=== PATIENT | male | born 1985 | race American Indian/Alaskan Native ===

== ENCOUNTER 2017-09-15 20:04 | Inpatient (IN) | payer OTHER ==
[2017-09-15 20:48] VITALS: BMI 43.6
[2017-09-15] MEDS ORDERED: Sodium Chloride 0.9% 1,000 ML IV STA ×4 (21:14→22:43)
--- NOTE | 2017-09-15 21:19 | ED PDOC ---
Arrival/HPI - General Chief Complaint: Dizziness/Lightheaded Time Seen by Provider: 09/15/17 21:13 Historian: Patient - History of Present Illness Narrative History of Present Illness (Text): 09/15/17 21:15 32 y/o male, pmh including htn/hyperlipidemia/DM???, nkda, c/o fatigue/ dizziness and thirsty for the past 3 days with no recent traveling. Pt. stated that he has been feeling fatigue with dizziness and thirsty for the past 3 days , no coughing or fever, no night sweat, no numbness or tingling, no other medical or psychological complaints. Past Medical History - Provider Review Nursing Documentation Reviewed: Yes - Tetanus Immunization Tetanus Immunization: Unknown - Cardiac Hx Hypertension: Yes - Pulmonary Hx Respiratory Disorders: No - Neurological Hx Migraine: Yes Other/Comment: sleep apnea - HEENT Hx HEENT Disorder: No - Renal Hx Renal Disorder: No - Endocrine/Metabolic Hx Diabetes Mellitus Type 2: Yes - Hematological/Oncological Hx Blood Disorders: No - Integumentary Hx Dermatological Disorder: No - Musculoskeletal/Rheumatological Hx Musculoskeletal Disorders: No - Gastrointestinal Hx Gastrointestinal Disorders: No - Genitourinary/Gynecological Hx Genitourinary Disorders: No - Psychiatric Hx Depression: No Hx Emotional Abuse: No Hx Physical Abuse: No Hx Substance Use: No - Past Surgical History Past Surgical History: No Previous - Suicidal Assessment Feels Threatened In Home Enviroment: No Family/Social History - Physician Review Nursing Documentation Reviewed: Yes Family/Social History: Unknown Family HX Smoking Status: Heavy Smoker > 10 Cigarettes Daily Hx Alcohol Use: Yes Hx Substance Use: No Hx Substance Use Treatment: No Allergies/Home Meds Allergies/Adverse Reactions: Allergies No Known Allergies Allergy (Verified 09/15/17 20:25) Home Medications: Home Meds Medication Instructions Recorded Confirmed Acetaminophen [Tylenol Extra 500 mg PO PRN PRN 09/15/17 09/15/17 Strength] MetFORMIN [glucOPHAGE] 1,000 mg PO DAILY 09/15/17 09/15/17 Simvastatin 20 mg PO DAILY 09/15/17 09/15/17 Valsartan/Hydrochlorothiazide 1 tab PO DAILY 09/15/17 09/15/17 [Valsartan and Hydrochlorothiazide 25 mg-320 M] amLODIPine [Norvasc] 10 mg PO DAILY 09/15/17 09/15/17 Review of Systems - Review of Systems Constitutional: Fatigue. absent: Fevers Eyes: absent: Vision Changes ENT: Other (+thirsty). absent: Hearing Changes Respiratory: absent: SOB, Cough Cardiovascular: absent: Chest Pain, Orthopnea Gastrointestinal: absent: Abdominal Pain, Diarrhea, Nausea, Vomiting Skin: absent: Rash, Pruritis Neurological: Headache, Dizziness. absent: Focal Weakness Endocrine: absent: Diaphoresis Psychiatric: absent: Anxiety, Depression Physical Exam Vital Signs Reviewed: Yes Vital Signs Temp Pulse Resp BP Pulse Ox 09/15/17 23:13 96 H 18 143/86 98 09/15/17 20:35 98.4 F 109 H 21 109/74 94 L 09/15/17 20:32 98.4 F 105 H 21 109/74 95 Temperature: Afebrile Blood Pressure: Normal Pulse: Tachycardic Respiratory Rate: Normal Appearance: Positive for: Well-Appearing, Non-Toxic, Comfortable Pain Distress: None Mental Status: Positive for: Alert and Oriented X 3 - Systems Exam Head: Present: Atraumatic, Normocephalic Pupils: Present: PERRL Extroacular Muscles: Present: EOMI Conjunctiva: Present: Normal Mouth: Present: Moist Mucous Membranes Neck: Present: Normal Range of Motion Respiratory/Chest: Present: Clear to Auscultation, Good Air Exchange. No: Respiratory Distress, Accessory Muscle Use Cardiovascular: Present: Regular Rate and Rhythm, Normal S1, S2. No: Murmurs Abdomen: Present: Normal Bowel Sounds. No: Tenderness, Distention, Peritoneal Signs, Rebound, Guarding Back: Present: Normal Inspection Upper Extremity: Present: Normal Inspection. No: Cyanosis, Edema Lower Extremity: Present: Normal Inspection. No: Edema Neurological: Present: GCS=15, CN II-XII Intact, Speech Normal, Motor Func Grossly Intact, Gait Normal, Memory Normal, Other (normal finger to nose test, normal heel to montano test. ) Skin: Present: Warm, Dry, Normal Color. No: Rashes Psychiatric: Present: Alert, Oriented x 3, Normal Insight, Normal Concentration Medical Decision Making ED Course and Treatment: 09/15/17 21:21 -labs/ua/vbg -ekg -cxr -CT head -IVF -Observe and reassess 09/15/17 22:50 -POC>500, admits drinking alot of the fluid, will check Na and give IV bolus with insulin, will need to rule out DKA 09/15/17 22:41 -EKG: NSR @ 97 BPM, no ST elevation or depression, no T wave inversion, Tall T wave noted on the V1 and V2 region -Chest xray show: no active disease -CT head show: no acute findings -Labs are non-significant except wbc 13.4 (no fever or chills, no other medical complaints, blood cultures ordered), lactate acid 3.4 (no signs of infection), K + 6.4, Na 121, Anion gap 21, Creatine 1.9, Troponin 0.03 -VBG: Ph 7.32 with lactic acid 3.4 -IV 10 units insulin/insulin drip/d5w/Kayaxalate/1000cc bolus fluid (confirmed with Dr. Mckeon and agreed)/calcium gluconate. -I spoke to the ICU roundhouse worker Dr. Palmer and admitting to Dr. Cruz, discussed about the case/labs/radiology results, agreed to take this case, admit to DR. Cruz but go the ICU to be accepted by Dr. Palmer as well. -I discussed the case in detail with Dr. Mckeon, he agreed on the admission/ treatment plan. - Critical Care Critical Care Minutes: 30 minutes Critical Care Time: Unstable Narrative Critical Care (Text): 09/16/17 15:01 hyperglycemia and dehydration with elevation of creatine and possible organ injury. - Lab Interpretations Lab Results: 09/15/17 21:35 09/15/17 21:35 Lab Results 09/15/17 22:48: Serum Osmolality 324 H 09/15/17 21:35: pO2 37, VBG pH 7.32, VBG pCO2 63.0 H, VBG HCO3 32.5 H, VBG Total CO2 34.4 H, VBG O2 Sat (Calc) 79.7 H, VBG Base Excess 4.5 H, VBG Potassium 6.8 H*, Sodium 125.0 L, Chloride 76.0 L, Glucose > 750 H*, Lactate 3.4 H, FiO2 21.0, Venous Blood Potassium 6.8 H* 09/15/17 21:35: Influenza Typ A,B (EIA) Negative for flu a/b 09/15/17 21:35: WBC 13.4 H, RBC 5.78, Hgb 16.9, Hct 50.8, MCV 87.9, MCH 29.2, MCHC 33.3, RDW 12.6, Plt Count 258, MPV 12.4 H, Gran % 73.9 H, Lymph % (Auto) 17.1 L, [place]imble % (Auto) 6.6 H, Eos % (Auto) 2.3, Baso % (Auto) 0.1, Gran # 9.88 H , Lymph # (Auto) 2.3, Trimble # (Auto) 0.9 H, Eos # (Auto) 0.3, Baso # (Auto) 0.02 09/15/17 21:35: Sodium 121 L, Chloride 78 L, Potassium 6.4 H*, Carbon Dioxide 29 , Anion Gap 21 H, BUN 27 H, Creatinine 1.9 H, Est GFR ( Amer) 50, Est GFR (Non-Af Amer) 42, Random Glucose 822 H*, Calcium 9.6, Magnesium 2.2, Total Bilirubin 1.0, AST 41, ALT 66 H, Alkaline Phosphatase 114, Lactate Dehydrogenase 518, Total Creatine Kinase 501 H, CK-MB (CK-2) 1.4, CK-MB (CK-2) % Cancelled, Troponin I 0.03, NT-Pro-B Natriuret Pep 24.9, Total Protein 7.6, Albumin 4.5, Globulin 3.1, Albumin/Globulin Ratio 1.4 09/15/17 21:15: POC Glucose (mg/dL) > 500 H* - RAD Interpretation Radiology Orders: 09/15/17 21:14 HEAD W/O CONTRAST [CT] Stat CHEST PORTABLE [RAD] Stat Chest xray: no active disease CT Head: no acute intracranial findings. 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 - Medication Orders Current Medication Orders: Potassium Chloride 20 meq/ (Sodium Chloride) 1,010 mls @ 200 mls/hr IV .Q5H3M [facility] Last Admin: 09/16/17 11:35 Dose: 200 mls/hr eMAR Start Stop Document 09/16/17 11:35 GLI (Rec: 09/16/17 11:35 GLI [id number]) Intravenous Solution Start Date 09/16/17 Start Time 11:35 End Date 09/16/17 Insulin Detemir (Levemir) 34 unit SC [facility] Insulin Human Lispro (Humalog Low) 0 units SC ACHS JL PRN Reason: Protocol Last Admin: 09/16/17 11:44 Dose: Not Given Non-Admin Reason: Blood Sugar Parameter Insulin Human Lispro (Humalog) 14 units SC AC [facility] Last Admin: 09/16/17 11:42 Dose: 14 units MAR Blood Glucose Document 09/16/17 11:42 GLI (Rec: 09/16/17 11:43 GLI [id number]) Blood Glucose Finger Stick Blood Glucose (70-120) 286 Subcutaneous Administrations Document 09/16/17 11:42 GLI (Rec: 09/16/17 11:43 GLI [id number]) Injection Site MAR Injection Site Left Deltoid Charges for Administration # of Subcutaneous Administrations 1 Pantoprazole Sodium (Protonix Inj) 40 mg IVP DAILY [facility] Last Admin: 09/16/17 10:37 Dose: 40 mg IVP Administration Document 09/16/17 10:37 GLI (Rec: 09/16/17 10:37 GLI [id number]) Charges for Administration # of IVP Administrations 1 Discontinued Medications Acetaminophen (Tylenol 325mg Tab) 650 mg PO ONCE ONE Stop: 09/16/17 11:29 Last Admin: 09/16/17 11:37 Dose: 650 mg MAR Pain/Vitals Document 09/16/17 11:37 GLI (Rec: 09/16/17 11:38 GLI [id number]) Pain Reassessment Is This A Pain ReAssessment? No Presence of Pain Presence of Pain Yes Pain Scale Used Pain Scale Used Numeric Location Pain Location Body Site Back Description Intermittent Intensity 6 Scale Used Numeric Aggravating Factors Changing Position Re-Assess: [facility] Pain/Vitals Document 09/16/17 12:37 GLI (Rec: 09/16/17 14:13 GLI [id number]) Pain Reassessment Is This A Pain ReAssessment? Yes Sleep Is patient sleeping during reassessment? Yes Sodium Chloride (Sodium Chloride 0.9%) 1,000 mls @ 100 mls/hr IV .Q10H STA Stop: 09/16/17 07:13 Last Admin: 09/15/17 21:44 Dose: 100 mls/hr eMAR Start Stop Document 09/15/17 21:44 [email or web address] (Rec: 09/15/17 21:44 [email or web address]) Intravenous Solution Start Date 09/15/17 Start Time 21:44 End Date 09/15/17 Sodium Chloride (Sodium Chloride 0.9%) 1,000 mls @ 999 mls/hr IV .Q1H1M STA Stop: 09/15/17 23:10 Last Admin: 09/15/17 22:23 Dose: Sodium Chloride (Sodium Chloride 0.9%) 1,000 mls @ 999 mls/hr IV .Q1H1M STA Stop: 09/15/17 23:11 Last Admin: 09/15/17 22:15 Dose: 999 mls/hr eMAR Start Stop Document 09/15/17 22:15 [email or web address] (Rec: 09/15/17 22:15 [email or web address]) Intravenous Solution Start Date 09/15/17 Start Time 22:15 End Date 09/15/17 Calcium Gluconate 2,000 mg/ (Dextrose) 120 mls @ 110 mls/hr IVPB ONCE ONE Stop: 09/15/17 23:38 Last Admin: 09/15/17 23:35 Dose: 110 mls/hr eMAR Start Stop Document 09/15/17 23:35 SS (Rec: 09/15/17 23:36 SS [id number]) Intravenous Solution Start Date 09/15/17 Start Time 23:35 End Date 09/16/17 End time 00:41 Total Infusion Time 66 Insulin Human Regular 100 (units/ Sodium Chloride) 100 mls @ 15.42 mls/hr IV .Q6H30M PRN; Protocol; 0.1 UNITS/KG/HR PRN Reason: TITRATE PER MD ORDER Stop: 09/16/17 11:00 Last Titration: 09/16/17 07:00 Dose: 0.02 units/kg/hr, 4 mls/hr Titration Intervention Document 09/16/17 07:00 GLI (Rec: 09/16/17 08:47 GLI [id number]) Titration Intake Titration Intake 20 Cumulative Intake 20 Cumulative Intake (Rx) 20 Waste Amount 0 Container Volume 80 Titration Dosing Titration Dose 0.02 IV Rate 4 Intake/Decrease Decreased Cumulative Dose 20 Sodium Chloride (Sodium Chloride 0.9%) 1,000 mls @ 999 mls/hr IV .Q1H1M STA Stop: 09/15/17 23:43 Last Admin: 09/15/17 22:50 Dose: 999 mls/hr eMAR Start Stop Document 09/15/17 22:50 [email or web address] (Rec: 09/15/17 22:50 [email or web address]) Intravenous Solution Start Date 09/15/17 Start Time 22:50 End Date 09/15/17 Sodium Chloride (Sodium Chloride 0.9%) 1,000 mls @ 200 mls/hr IV .Q5H JL Insulin Human Regular (Humulin R) 10 units IV STAT STA Stop: 09/15/17 22:12 Last Admin: 09/15/17 22:23 Dose: 10 units eMAR Start Stop Document 09/15/17 22:23 [email or web address] (Rec: 09/15/17 22:23 [email or web address]) Intravenous Solution Start Date 09/15/17 Start Time 22:23 End Date 09/15/17 MAR Blood Glucose Document 09/15/17 22:23 [email or web address] (Rec: 09/15/17 22:23 [email or web address]) Blood Glucose Finger Stick Blood Glucose (70-120) 500 Morphine Sulfate (Morphine) 2 mg IVP STAT STA Stop: 09/15/17 22:59 Last Admin: 09/15/17 23:13 Dose: 2 mg IVP Administration Document 09/15/17 23:13 SS (Rec: 09/15/17 23:17 SS [id number]) Charges for Administration # of IVP Administrations 1 Morphine Sulfate (Morphine) 2 mg IVP STAT STA Stop: 09/16/17 00:54 Last Admin: 09/16/17 01:31 Dose: 2 mg IVP Administration Document 09/16/17 01:31 [facility] (Rec: 09/16/17 01:31 [id number]) Charges for Administration # of IVP Administrations 1 Sodium Polystyrene Sulfonate (Kayexalate Susp) 15 gm PO STAT STA Stop: 09/15/17 22:29 Last Admin: 09/15/17 22:53 Dose: 15 gm - PA / RN CLINICAL APPEALS / Resident Statement /DO has reviewed & agrees with the documentation as recorded. Disposition/Present on Arrival - Present on Arrival Any Indicators Present on Arrival: No History of DVT/PE: No History of Uncontrolled Diabetes: No Urinary Catheter: No History of Decub. Ulcer: No History Surgical Site Infection Following: None - Disposition Have Diagnosis and Disposition been Completed?: Yes Diagnosis: Acute hyperglycemia, Hyperkalemia, Hyperglycemia due to type 2 diabetes mellitus Disposition: HOSPITALIZED Disposition Time: 22:30 Patient Plan: Admission, ICU Patient Problems: Current Active Problems Problem Status Onset Acute hyperglycemia Acute Hyperkalemia Acute Hyperglycemia due to type 2 diabetes mellitus Acute Condition: STABLE
[2017-09-15 21:42] LABS: VENOUS BLOOD GAS BASE EXCESS 4.5 mmol/L (0.0-2.0); VENOUS BLOOD GAS PO2 37 mm/Hg (30-55); VENOUS BLOOD PH 7.32 (7.32-7.43)
[2017-09-15 21:47] LABS: BASO # 0.02 K/mm3 (0.0-2.0); BASO % 0.1 % (0.0-3.0); EOS # 0.3 (0.0-0.7); EOS % 2.3 % (1.5-5.0); GRAN # 9.88 (1.4-6.5); GRAN % 73.9 % (50.0-68.0); HEMOGLOBIN 16.9 g/dL (14.0-18.0); LYMPH # 2.3 (1.2-3.4); LYMPH % 17.1 % (22.0-35.0); MEAN CELL VOLUME 87.9 fl (80.0-105.0); MEAN CORPUSCULAR HEMOGLOBIN 29.2 pg (25.0-35.0); MEAN CORPUSCULAR HGB CONC 33.3 g/dl (31.0-37.0); MEAN PLATELET VOLUME 12.4 fl (7.0-11.0); MONO # 0.9 (0.1-0.6); MONO % 6.6 % (1.0-6.0); RBC 5.78 10^6/uL (3.5-6.1); RED CELL DISTRIBUTION WIDTH 12.6 % (11.5-14.5); WHITE BLOOD COUNT 13.4 10^3/ul (4.5-11.0)
[2017-09-15] MEDS ORDERED: Insulin Regular 1 UNITS/0.01 ML ML IV STA (22:11)
[2017-09-15 22:17] LABS: B-TYPE NATRIURETIC PEPTIDE 24.9 pg/mL (0-450); TROPONIN I 0.03 ng/mL
[2017-09-15 22:23] LABS: ALB/GLOB RATIO 1.4 (1.1-1.8); ALBUMIN 4.5 g/dL (3.0-4.8); CALCIUM 9.6 mg/dL (8.4-10.5); MAGNESIUM 2.2 mg/dL (1.7-2.2)
[2017-09-15 22:24] LABS: CK-MB 1.4 ng/mL (0.0-3.6)
[2017-09-15] MEDS ORDERED: Sod Polystyrene Sulf 15 gm/60 ml Susp PO STA (22:28)
[2017-09-15] MEDS ORDERED: Insulin Regular 100 UNITS in Sodium Chloride 0.9% 99 ML IV PRN (22:38)
[2017-09-15] MEDS ORDERED: Sodium Chloride 0.9% 1,000 ML IV SCH (22:45)
[2017-09-15] MEDS ORDERED: Dextrose 5%/0.9% NS 1,000 ML IV SCH (22:45)
--- NOTE | 2017-09-15 22:54 | CT ---
EXAM: CT Head Without Intravenous Contrast EXAM DATE/TIME: 09/15/2017 9:14 PM CLINICAL HISTORY: The patient age is 32 years old and is male; Signs and symptoms; Dizziness; Additional info: Headache/dizziness Facility exam id and description: Ct heads head w/o contrast TECHNIQUE: Axial computed tomography images of the head/brain without intravenous contrast. All CT scans at this facility use one or more dose reduction techniques, viz.: automated exposure control; ma/kV adjustment per patient size (including targeted exams where dose is matched to indication; i.e. head); or iterative reconstruction technique. Coronal and sagittal reformatted images were created and reviewed. COMPARISON: CT - HEAD W/O CONTRAST 2015-12-15 22:19 FINDINGS: Brain: The white-medina differentiation is preserved demonstrating no acute territorial type infarct. No acute intracranial hemorrhage is seen. Midline shift: There is no midline shift. Ventricles: No ventriculomegaly. Bones/joints: The calvarium demonstrates no evidence for a depressed fracture. Soft tissues: A few small cutaneous cysts or nodules are identified within the posterior upper neck. Sinuses: A mucous retention cyst or polyp is visualized within the left maxillary sinus. Mastoid air cells: No mastoid effusion. IMPRESSION: 1. No acute intracranial abnormality. 2. Paranasal sinus disease is noted above. 3. A few small cutaneous cysts or nodules are identified within the posterior upper neck. Clinical correlation is recommended.
[2017-09-15] MEDS ORDERED: Morphine 5 MG/ML SYRINGE IVP STA (22:58)
--- NOTE | 2017-09-15 23:37 | CP.PCM.CON ---
<Rustam Orantes - Last Filed: 09/15/17 23:29> History of Present Illness - History of Present Illness History of Present Illness: ICU Consult CC: Blurry vision, fatigue, abdominal pain HPI: 32 M with a PMHx of NIDDM, HTN, and HLD presenting [place] [facility] with complaints of fatigue, malaise, polydypsia, blurry vision and abdominal pain. Pt states that the symptoms began this past after eating a large pork chop meal and has progressively worsened prompting him to seek medical attention. He has similar episodes with similar constellation of symptoms in the past however his previous episodes never persisted more than a day. Pt states after his large meal on he has been drinking more fluids than usual (including sugary drinks) and has been eating solely grapes. Pt admitted to subjective fever, increased urine frequency, polydypsia, dry nonproductive cough, abdominal pain, and reproducible chest discomfort. Pt denied chills, sob, nausea , vomiting, diarrhea or constipation. PMHx:NIDDM, HTN, and HLD PSHx: Denied SHx: +tobacco (1ppwk x 10yr), +ETOH (weekends, varies), denied illicit drug use , [employer] FamilyHx: HTN and DM Allergies: NKDA Meds: Valsartan/HCTZ, atorvastatin, amlodipine, metformin PMD: Dr. Hardy Review of Systems - Review of Systems Review of Systems: as per HPI otherwise negative Past Patient History - Tetanus Immunizations Tetanus Immunization: Unknown - Past Social History Smoking Status: Heavy Smoker > 10 Cigarettes Daily - CARDIAC Hx Hypertension: Yes - PULMONARY Hx Respiratory Disorders: No - NEUROLOGICAL Hx Migraine: Yes Other/Comment: sleep apnea - HEENT Hx HEENT Problems: No - RENAL Hx Chronic Kidney Disease: No - ENDOCRINE/METABOLIC Hx Diabetes Mellitus Type 2: Yes - HEMATOLOGICAL/ONCOLOGICAL Hx Blood Disorders: No - INTEGUMENTARY Hx Dermatological Problems: No - MUSCULOSKELETAL/RHEUMATOLOGICAL Hx Musculoskeletal Disorders: No - GASTROINTESTINAL Hx Gastrointestinal Disorders: No - GENITOURINARY/GYNECOLOGICAL Hx Genitourinary Disorders: No - PSYCHIATRIC Hx Depression: No Hx Emotional Abuse: No Hx Physical Abuse: No Hx Substance Use: No - SURGICAL HISTORY Hx Surgeries: No Meds Allergies/Adverse Reactions: Allergies Allergy/AdvReac Type Severity Reaction Status Date / Time No Known Allergies Allergy Verified 09/15/17 20:25 - Medications Medications: Current Medications Calcium Gluconate 2,000 mg/ (Dextrose) 120 mls @ 110 mls/hr IVPB ONCE ONE Stop: 09/15/17 23:38 Insulin Human Regular 100 (units/ Sodium Chloride) 100 mls @ 15.42 mls/hr IV .Q6H30M PRN; Protocol; 0.1 UNITS/KG/HR PRN Reason: TITRATE PER MD ORDER Sodium Chloride (Sodium Chloride 0.9%) 1,000 mls @ 999 mls/hr IV .Q1H1M STA Stop: 09/15/17 23:43 Last Admin: 09/15/17 22:50 Dose: 999 mls/hr Sodium Chloride (Sodium Chloride 0.9%) 1,000 mls @ 200 mls/hr IV .Q5H JL Physical Exam - Constitutional Appears: No Acute Distress - Head Exam Head Exam: ATRAUMATIC, NORMAL INSPECTION, NORMOCEPHALIC - Eye Exam Eye Exam: EOMI, Normal appearance, PERRL Pupil Exam: NORMAL ACCOMODATION, PERRL - ENT Exam ENT Exam: Mucous Membranes Dry - Neck Exam Neck exam: Positive for: Normal Inspection - Respiratory Exam Respiratory Exam: Clear to Auscultation Bilateral, NORMAL BREATHING PATTERN - Cardiovascular Exam Cardiovascular Exam: REGULAR RHYTHM, +S1, +S2 - GI/Abdominal Exam GI & Abdominal Exam: Normal Bowel Sounds, Soft, Tenderness (diffuse) - Extremities Exam Extremities exam: Positive for: normal inspection - Neurological Exam Neurological exam: Alert, CN II-XII Intact, Normal Gait, Oriented x3, Reflexes Normal - Psychiatric Exam Psychiatric exam: Normal Affect, Normal Mood - Skin Skin Exam: Dry, Intact, Normal Color, Warm Results - Vital Signs Recent Vital Signs: Last Vital Signs Temp 98.4 F 09/15/17 20:35 Pulse 109 H 09/15/17 20:35 Resp 21 09/15/17 20:35 BP 109/74 09/15/17 20:35 Pulse Ox 94 L 09/15/17 20:35 - Labs Result Diagrams: 09/15/17 21:35 09/15/17 21:35 Assessment & Plan - Assessment and Plan (Free Text) Assessment: 32 M with a PMHx of NIDDM, HTN, and HLD presenting [place] [facility] with complaints of fatigue, malaise, polydypsia, blurry vision and abdominal pain admitted to ICU with [facility] for close monitoring. Neuro stable AAOx3 speaking full sentences moving all extremities spontaneously continue to monitor Pulm stable 02 sat >90% on RA 02 NC prn to maintain 02 sat >90% HOB>30 continue to monitor CVS Hx HTN HD stable hold anti-htn meds at this time IVF NS @ 200ml/hr fu lipid panel, TSH, EKG, Trops trop 0.03 in setting of renal failure Continue to monitor GI NPO GI ppx protonix Renal CARINA BUN: 27 Cr: 1.9 FU renal fcn, avoid nephrotoxic medications hyponatremic corrected Na: 128 IVF: NS@200 ml/hr hypocalcemic, calcium gluconate hyperkalemic, kayexelate, insulin drip FU BMP Q3Hx 2, Q4Hx3 FU Mg Phos and supplement as needed FU VBG monitor UOP Heme leukocytosis fu UA fu CXR FU CT abdomen Fu pct lactate 3.4, fu VBG in AM Endo HHS bg >800 insulin drip IVF NS @ 200 ml/hr fingersticks q1h Fu Hgb A1c switch fluids once bg <250 DVT/GI ppx reviewed Seen reviewed and discussed with Dr. Palmer <Estela ROSA,[facility] - Last Filed: 09/17/17 08:51> Meds - Medications Medications: Current Medications Sodium Chloride (Sodium Chloride 0.9%) 1,000 mls @ 100 mls/hr IV .Q10H [facility] Last Admin: 09/17/17 06:54 Dose: 100 mls/hr Insulin Detemir (Levemir) 34 unit SC HS [facility] Last Admin: 09/16/17 22:02 Dose: 34 unit Insulin Human Lispro (Humalog Low) 0 units SC ACHS [facility] PRN Reason: Protocol Last Admin: 09/16/17 22:02 Dose: Not Given Insulin Human Lispro (Humalog) 14 units SC AC [facility] Last Admin: 09/16/17 16:24 Dose: 14 units Pantoprazole Sodium (Protonix Ec Tab) 40 mg PO 0600 [facility] Last Admin: 09/17/17 06:23 Dose: 40 mg Results - Vital Signs Recent Vital Signs: Last Vital Signs Temp 97.3 F L 09/17/17 08:00 Pulse 111 H 09/17/17 08:20 Resp 17 09/17/17 08:20 BP 147/96 H 09/17/17 08:00 Pulse Ox 97 09/17/17 08:20 - Labs Result Diagrams: 09/17/17 05:30 09/17/17 05:30 Labs: Laboratory Results - last 24 hr 09/16/17 09/16/17 09/16/17 00:30 09:30 10:31 WBC RBC Hgb Hct MCV MCH MCHC RDW Plt Count MPV Sodium Potassium Chloride Carbon Dioxide Anion Gap BUN Creatinine Est GFR ( Amer) Est GFR (Non-Af Amer) POC Glucose (mg/dL) 357 H 342 H Random Glucose Calcium Phosphorus Magnesium Total Bilirubin AST ALT Alkaline Phosphatase Troponin I Total Protein Albumin Globulin Albumin/Globulin Ratio Procalcitonin 0.20 09/16/17 09/16/17 09/16/17 11:20 11:39 15:30 WBC RBC Hgb Hct MCV MCH MCHC RDW Plt Count MPV Sodium 134 135 Potassium 3.9 4.3 Chloride 94 L 96 L Carbon Dioxide 28 28 Anion Gap 16 15 BUN 26 H 26 H Creatinine 1.3 1.4 Est GFR ( Amer) > 60 > 60 Est GFR (Non-Af Amer) > 60 59 POC Glucose (mg/dL) 275 H Random Glucose 325 H* D 235 H Calcium 8.9 8.9 Phosphorus 5.4 H 4.9 H Magnesium 2.4 H 2.5 H Total Bilirubin AST ALT Alkaline Phosphatase Troponin I 0.03 Total Protein Albumin Globulin Albumin/Globulin Ratio Procalcitonin 09/16/17 09/16/17 09/17/17 16:14 21:48 05:30 WBC RBC Hgb Hct MCV MCH MCHC RDW Plt Count MPV Sodium 134 Potassium 4.7 Chloride 98 Carbon Dioxide 28 Anion Gap 13 BUN 22 H Creatinine 1.0 Est GFR ( Amer) > 60 Est GFR (Non-Af Amer) > 60 POC Glucose (mg/dL) 204 H 272 H Random Glucose 352 H* D Calcium 8.4 Phosphorus Magnesium Total Bilirubin 0.7 AST 42 ALT 52 Alkaline Phosphatase 71 Troponin I Total Protein 6.2 Albumin 3.5 Globulin 2.7 Albumin/Globulin Ratio 1.3 Procalcitonin 09/17/17 09/17/17 05:30 08:15 WBC 9.5 D RBC 5.00 Hgb 14.1 D Hct 44.0 MCV 88.0 MCH 28.2 MCHC 32.0 RDW 12.9 Plt Count 206 MPV 12.2 H Sodium Potassium Chloride Carbon Dioxide Anion Gap BUN Creatinine Est GFR ( Amer) Est GFR (Non-Af Amer) POC Glucose (mg/dL) 307 H Random Glucose Calcium Phosphorus Magnesium Total Bilirubin AST ALT Alkaline Phosphatase Troponin I Total Protein Albumin Globulin Albumin/Globulin Ratio Procalcitonin Attending/Attestation - Attestation I have personally seen and examined this patient.: Yes I have fully participated in the care of the patient.: Yes I have reviewed all pertinent clinical information: Yes Notes (Text): -I agree with the above ICU consult note completed by the resident physician, with the following additions and/or changes: -The patient is a 32 year old man with a history of NIDDM, morbid obesity and HTN being admitted to the ICU with hyperglycemic hyperosmolar state (HHS), CAIRNA, hyperkalemia and lactic acidosis. He will be given aggressive IVF's and then started on Insulin drip with hourly accu-check's. Serial BMP's and VBG's will be monitored every 4 hours. Both nephrology and endocrinology have been consulted and Procalcitonin ordered.
[2017-09-16] MEDS ORDERED: Morphine 5 MG/ML SYRINGE IVP STA (00:53)
[2017-09-16 00:54] LABS: VENOUS BLOOD GAS BASE EXCESS 2.5 mmol/L (0.0-2.0); VENOUS BLOOD GAS PO2 47 mm/Hg (30-55)
[2017-09-16 01:09] LABS: CALCIUM 10.1 mg/dL (8.4-10.5); MAGNESIUM 2.4 mg/dL (1.7-2.2)
[2017-09-16] MEDS ORDERED: Sodium Chloride 0.9% 1,000 ML IV STA (01:19)
[2017-09-16 03:50] LABS: TROPONIN I 0.03 ng/mL
[2017-09-16 03:52] LABS: CALCIUM 9.6 mg/dL (8.4-10.5); MAGNESIUM 2.5 mg/dL (1.7-2.2)
[2017-09-16 04:14] LABS: URINE BILIRUBIN NEGATIVE (NEGATIVE); URINE BLOOD NEGATIVE (NEGATIVE); URINE GLUCOSE (UA) >=1000 mg/dL (NEGATIVE); URINE LEUKOCYTE ESTERASE NEGATIVE Leu/uL (NEGATIVE); URINE NITRATE NEGATIVE (NEGATIVE); URINE PROTEIN NEGATIVE mg/dL (<30 mg/dL); URINE UROBILINOGEN 0.2 E.U./dL (<1 E.U./dL)
[2017-09-16 04:15] LABS: URINE APPEARANCE CLEAR (CLEAR); URINE COLOR YELLOW (YELLOW)
[2017-09-16 07:02] LABS: VENOUS BLOOD GAS BASE EXCESS 3.4 mmol/L (0.0-2.0); VENOUS BLOOD GAS PO2 67 mm/Hg (30-55); VENOUS BLOOD PH 7.35 (7.32-7.43)
[2017-09-16 07:29] LABS: LDL CHOLESTEROL 135 mg/dL (0-129)
[2017-09-16 07:30] LABS: BLOOD UREA NITROGEN 28 mg/dL (7-21); CALCIUM 8.7 mg/dL (8.4-10.5); GFR AFRICAN-AMERICAN > 60; GFR NON-AFRICAN AMERICAN 51; HDL CHOLESTEROL 25 mg/dL (29-60); MAGNESIUM 2.2 mg/dL (1.7-2.2)
--- NOTE | 2017-09-16 08:52 | RAD ---
HISTORY: medical clearance COMPARISON: No prior. FINDINGS: LUNGS: No active pulmonary disease. PLEURA: No significant pleural effusion identified, no pneumothorax apparent. CARDIOVASCULAR: Normal. OSSEOUS STRUCTURES: No significant abnormalities. VISUALIZED UPPER ABDOMEN: Normal. OTHER FINDINGS: None. IMPRESSION: No active disease.
--- NOTE | 2017-09-16 09:31 | US ---
PROCEDURE: Ultrasound of the Kidneys HISTORY: Evaluate for hydronephrosis COMPARISON: None available. TECHNIQUE: Sonogram of the kidneys. FINDINGS: RIGHT KIDNEY: Measures: 9.78 x 5.77 x 5.78 cm. Normal in size, contour and echogenicity. No stone, solid mass lesion or hydronephrosis visualized. LEFT KIDNEY: Measures: 10.50 x 6.33 x 6.32 cm. Normal in size, contour and echogenicity. No stone, solid mass lesion or hydronephrosis visualized. OTHER FINDINGS: None. IMPRESSION: Unremarkable renal sonogram.
[2017-09-16] MEDS: Insulin Lispro 1 UNITS/0.01 ML SC SCH ×2 (11:42→16:24)
[2017-09-16] MEDS: Insulin Lispro (humaLOG) LOW Coverage SC SCH ×3 (11:44→22:02)
[2017-09-16 11:50] LABS: BLOOD UREA NITROGEN 26 mg/dL (7-21); CALCIUM 8.9 mg/dL (8.4-10.5); GFR AFRICAN-AMERICAN > 60; GFR NON-AFRICAN AMERICAN > 60; MAGNESIUM 2.4 mg/dL (1.7-2.2)
[2017-09-16 11:51] LABS: TROPONIN I 0.03 ng/mL
--- NOTE | 2017-09-16 14:40 | CARD ---
APPROVED REPORT EKG Measurement Heart [id number] <Conclusion> Normal sinus rhythm Minimal voltage criteria for LVH, may be normal variant Nonspecific T wave abnormality Prolonged QT Abnormal ECG
[2017-09-16 16:31] LABS: BLOOD UREA NITROGEN 26 mg/dL (7-21); CALCIUM 8.9 mg/dL (8.4-10.5); GFR AFRICAN-AMERICAN > 60; GFR NON-AFRICAN AMERICAN 59; MAGNESIUM 2.5 mg/dL (1.7-2.2)
[2017-09-16] MEDS: Potassium Chloride 20 MEQ in Dextrose 5%/0.45% NS 1,000 ML IV SCH (20:57)
[2017-09-16] MEDS ORDERED: Insulin Detemir 100 units/ml Vial (Levemir) SC SCH (22:00)
[2017-09-17] MEDS: Potassium Chloride 20 MEQ in Dextrose 5%/0.45% NS 1,000 ML IV SCH (04:45)
[2017-09-17 06:02] LABS: HEMOGLOBIN 14.1 g/dL (14.0-18.0); MEAN CORPUSCULAR HEMOGLOBIN 28.2 pg (25.0-35.0); MEAN PLATELET VOLUME 12.2 fl (7.0-11.0); RED CELL DISTRIBUTION WIDTH 12.9 % (11.5-14.5); WHITE BLOOD COUNT 9.5 10^3/ul (4.5-11.0)
[2017-09-17] MEDS: Pantoprazole 40 mg EC Tab PO SCH (06:23)
[2017-09-17] MEDS ORDERED: Sodium Chloride 0.9% 1,000 ML IV SCH (06:30)
[2017-09-17 06:58] LABS: ALB/GLOB RATIO 1.3 (1.1-1.8); ALBUMIN 3.5 g/dL (3.0-4.8); ALT/SGPT 52 U/L (7-56); AST/SGOT 42 U/L (17-59); BLOOD UREA NITROGEN 22 mg/dL (7-21); CALCIUM 8.4 mg/dL (8.4-10.5); GFR AFRICAN-AMERICAN > 60; GFR NON-AFRICAN AMERICAN > 60
[2017-09-17] MEDS: Insulin Lispro (humaLOG) LOW Coverage SC SCH ×4 (07:30→21:27)
[2017-09-17] MEDS: Insulin Lispro 1 UNITS/0.01 ML SC SCH ×3 (08:01→17:00)
--- NOTE | 2017-09-17 08:07 | HP ---
HISTORY OF PRESENT ILLNESS: This 32-year-old male was examined in ICU bed 1. He was admitted with uncontrolled hyperglycemia and history of noncompliance with outpatient diet and medication. He is morbidly obese. He states he has a history of long-term hypertension, for which he has not been compliant with medication and he was told he was diabetic over 1 year ago and recommended to take metformin, with which he was noncompliant. He also has a history of sleep apnea. He states he sometimes uses his sleep apnea equipment. He came to the emergency room with complaints of blurred vision, urinary frequency, polydipsia. The patient is employed as a regional company truck driver at the [employer] and on admission to our emergency room last evening was noted to have a blood sugar of 822. Sodium of 121, K of 6.4 and BUN of 27 and creatinine of 1.9. REVIEW OF SYSTEMS: CONSTITUTIONAL: He denied fever or chills. HEAD: He denied any knowledge of seizure. EYES: Blurry vision acutely with hyperglycemia. EARS: No hearing loss. THROAT: No swallowing difficulty. NECK: No stiffness. CARDIAC: Long-term history of hypertension, untreated because of the patient's noncompliance. PULMONARY: No cough. No hemoptysis. GI: Occasional gastroesophageal reflux disease. : Acute renal failure secondary to polyuria in the setting of hyperglycemia and possible uncontrolled hypertension and dehydration. VASCULAR: No claudication. PSYCHOLOGIC: No anxiety. No depression. NEUROLOGIC: No knowledge of seizure. ENDOCRINOLOGIC: History of hyperlipidemia and diabetes mellitus, for which the patient was noncompliant with medication and followup. FAMILY HISTORY: The patient states mother of metastatic kidney cancer. Father has pee-dknrkli-skbtjagbn diabetes mellitus. SOCIAL HISTORY: He states he is a social drinker, social smoker, non IV drug misuser. 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 PHYSICAL EXAMINATION VITAL SIGNS: Temperature 97.8, respirations 18, pulse 87, blood pressure 150/91, pulse ox 99% on room air. He was in a normal sinus rhythm on the stereotyper. HEAD: Normocephalic, atraumatic. EYES: No icterus. EARS: Clear. THROAT: Noninjected. NECK: Supple. HEART: Regular S1, S2. LUNGS: Clear. ABDOMEN: Obese. EXTREMITIES: No edema. SKIN: Without rash. NEUROLOGIC: Intact. PSYCHOLOGIC: Alert. VASCULAR: Legs warm to touch. He was wearing sequential compression device, antiembolism stockings. LABORATORY DATA: Initial sodium 121, K 6.4, chloride 78, bicarb 29, BUN 27, creatinine 1.9, random blood sugar 822. At present, sodium 127, K is 4.3, chloride 85, bicarb 27, BUN 28, creatinine 2.4, random blood sugar earlier today 594, with most recent blood sugar 342. Cholesterol 238, LDL 135, triglycerides 446, HDL 25. Urinalysis: Glucose greater than 1000, protein negative, no blood. Influenza A and B serology negative. Head CT was reviewed, it showed no acute intracranial abnormalities. EKG was reviewed, it showed normal sinus rhythm with nonspecific ST-T wave changes. Chest x-ray was reviewed, it showed no infiltrates, no pneumothorax, no pleural effusions. Renal ultrasound was reviewed. There was no evidence of mass, hydronephrosis or stones. IMPRESSION: A 32-year-old male with morbid obesity, long-term history of hypertension and diabetes mellitus, hyperlipidemia, for which the patient was noncompliant with diet, medication and medical followup and history of sleep apnea, now admitted with uncontrolled hyperglycemia, hyponatremia, hyperkalemia, acute renal failure, leukocytosis. PLAN: Plan is to maintain this patient in the Intensive Care Unit. He has a consultation pending with Dr. Angela Wiggins from Endocrinology. Blood and urine cultures have been ordered and are pending. He was ordered to receive Humalog insulin 14 units a.c. meals as well as low-dose Humalog insulin protocol a.c. meals and at bedtime, with Levemir 34 units subcu at bedtime. He received Kayexalate 1 g. He is on IV Protonix 40 mg daily. He is receiving 0.9 saline at 200 mL/hour and we will have his diet ordered and timed by Dr. Angela Wiggins from Endocrinology. He will have orders for a C-peptide and a GOPAL-65 antibody and orders for basic metabolic panel, magnesium and phosphorous levels as well as a hemoglobin A1c have been requested. The patient will remain in Critical Care until medically stabilized and all of the above was discussed in detail with the patient, nursing and co-consultants. Greater than 75 minutes was spent in the care management, review of x-rays, labs, medication and orders for this patient today. All questions were answered. Stacie Cruz MD [facility]
--- NOTE | 2017-09-17 09:51 | PN ---
DATE: 09/17/2017 BIOMASS POWER PLANT SUPERINTENDENT NOTE SUBJECTIVE: The patient is resting in bed. No obvious complaints. No respiratory distress on room air. No complaints of chest pain, shortness of breath. No abdominal pain. No diarrhea. The patient is off the insulin drip and his blood sugars are being followed by fingerstick. Note that we will start p.o. intake and see if the patient tolerates. PHYSICAL EXAMINATION: VITAL SIGNS: Note that his temperature is 98, pulse is 107, respirations of 22 and BP is 145/75. SKIN: Warm and dry. Head is atraumatic, normocephalic. Eyes reactive to light. Ear, nose and throat seemed to be within normal limits. NECK: Supple. No JVD. No thyroid enlargement. No lymph nodes. HEART: Regular rate and rhythm. Normal S1, S2. LUNGS: Reveal good breath sounds bilaterally. ABDOMEN: Soft, obese. Decreased bowel sounds. GENITALIA AND RECTAL: Deferred. MUSCULOSKELETAL: No joint deformities. EXTREMITIES: Reveal trace lower extremity edema. NEUROLOGICAL: He seems to be grossly intact. LABORATORY DATA: As far as his laboratories are concerned, his white count is 9.5, hemoglobin is 14.1, hematocrit 44.0 with platelets of 206,000. Sodium is 134, potassium 4.7, chloride 98, CO2 of 28 with a BUN of 22, creatinine of 1.0 and a glucose of 272. IMPRESSION: As far as my impression, the patient has history of diabetes and presenting with hyperglycemia. He has obesity, renal insufficiency and history of hypertension as well as hyperlipidemia. PLAN: As far as our plan, we will continue with IV fluids. The patient is started on a diet. He is getting Humalog at this time and started on Levemir as well. The patient continues to get his Protonix and as stated above IV fluids. We will continue to treat aggressively along with the other consultants and the primary care doctor. Hakeem Ro MD
[2017-09-17] MEDS ORDERED: Nitroglycerin 2% Ointment Foilpak UD TOP PRN (11:08)
--- NOTE | 2017-09-17 19:24 | PN ---
DATE: ENDOCRINOLOGY FOLLOWUP NOTE LOCATION: ICU 128, room 1. SUBJECTIVE: This is a 32-year-old male with recent uncontrolled type 2 insulin-requiring diabetes, presenting here with hyperosmolar hyperglycemic state and dehydration and is now being followed closely for metabolic management. His glycemic levels are still fluctuating as noted today and the glucose values have ranged from 204 to 272 and 307 mg/dL. The latest chemistry shows a BUN of 22, sodium 134, potassium 4.7, chloride 98, CO2 of 28, glucose 352, and creatinine 1.0. So, at this time, we will modify once again his basal and bolus insulin regimen and we will titrate incrementally to optimize metabolic control and also to override the underlying increased insulin resistance thereof, especially with underlying morbid obesity. 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 We will increase the Humalog to 18 units subcu t.i.d. before meals to start at lunchtime today as ordered. We will also increase the Levemir to 44 units subcu at bedtime daily to start tonight. We will initiate diabetic education to include insulin self-administration using the insulin pen and we will call our diabetic nurse educator, Ms. Drea Martínez, to initiate the aforementioned. We will also obtain nutritional counseling for weight loss efforts and healthier food choices as noted. We will follow this. Angela Wiggins MD
[2017-09-17] MEDS ORDERED: Insulin Detemir 100 units/ml Vial (Levemir) SC SCH (22:00)
--- NOTE | 2017-09-18 01:42 | PN ---
PROCEDURE DATE: 09/17/2017 CRITICAL CARE PROGRESS NOTE SUMMARY: This 32-year-old male was examined in bed 1 of the ICU. He was hospitalized with acute renal failure in the setting of uncontrolled insulin-dependent diabetes mellitus with a blood sugar in excess of 800 mg/dL. The patient was found to be with blurred vision, with polyuria and polydipsia on admission, and was also noted to have uncontrolled accelerated hypertension. At present, he is out of bed to chair. He is in a normal sinus rhythm on the manager cardiac. He is denying any fever or chills and receiving insulin therapy along with IV fluids. PHYSICAL EXAMINATION: VITAL SIGNS: Temperature 98, respirations 20, pulse 98, blood pressure 147/96. Pulse ox 97% on room air. Intake yesterday was 3350 mL in with a urine output of 1100 and a positive balance of 2250 mL. HEENT: Head: Normocephalic, atraumatic. Eyes: No icterus. Ears: Clear. Throat: Noninjected. NECK: Supple. HEART: Regular S1, S2. LUNGS: Clear. ABDOMEN: Obese. EXTREMITIES: No edema. SKIN: Without rash. NEUROLOGICAL: Intact. PSYCHOLOGICAL: Alert. VASCULAR: Legs warm to touch. The patient was wearing SCD, sequential anti-embolism stockings. LABORATORY DATA: White count 9500, previously 13,400, hemoglobin 14.1, hematocrit 44.0, and platelets 206,000. Sodium 134, potassium 4.7, chloride 98, bicarb 28, BUN 22, creatinine 1.0, random blood sugar 340. All liver function testing was normal including bilirubin 0.7, AST 42, ALT 52 and alk phos 71. Cholesterol 238, triglycerides 446, LDL 135, HDL 25. TSH normal 1.56. Urine unremarkable. Influenza A and B serology negative. RENAL ULTRASOUND: No evidence of hydronephrosis, stone or mass. IMPRESSION: A 32-year-old male with morbid obesity and history of hypertension, diabetes mellitus, hyperlipidemia, sleep apnea, admitted with uncontrolled diabetes mellitus, accelerated hypertension, acute renal failure, hyperlipidemia - all in the setting of noncompliance with outpatient diet and medication. PLAN: As discussed with the patient, nursing and Dr. Hakeem Ro from Intensive Care, Pulmonary Critical Care, will be to continue IV fluids while awaiting results of hemoglobin A1c, C-peptide and GAD65 antibodies. Microbiology studies show blood cultures with no growth at 24 hours and there was no MRSA detected in his nares. The patient will continue on Levemir insulin 44 units subcu at bedtime, Humalog 18 units subcu before meals, low-dose Humalog insulin coverage before meals and at bedtime, Lipitor 20 mg p.o. at dinner time, Lopressor 25 mg p.o. b.i.d., nitroglycerin 1 inch to chest wall q.4h. p.r.n. accelerated hypertension if systolic blood pressure should be greater than 160 or diastolic blood pressure should be greater than 100, Protonix 40 mg p.o. daily, Zestril 5 mg p.o. daily, heart healthy diabetic diet, and I will order physical therapy for ambulation safety. As discussed with the patient, based on his clinical progress, we will have diabetic nursing review the appropriate diet and use of insulin for this patient. Medications will continue to be adjusted based on clinical progress, and ultimate plan will be for discharge to home when medically stable. Greater than 35 minutes were spent in the care of this patient today. All of the above was reviewed in detail with the patient at bedside in critical care. All questions were answered. Stacie Cruz MD MTDArlene
[2017-09-18] MEDS: Pantoprazole 40 mg EC Tab PO SCH (06:49)
[2017-09-18 07:27] LABS: BLOOD UREA NITROGEN 15 mg/dL (7-21); CALCIUM 8.8 mg/dL (8.4-10.5); GFR AFRICAN-AMERICAN > 60; GFR NON-AFRICAN AMERICAN > 60
[2017-09-18] MEDS: Insulin Lispro 1 UNITS/0.01 ML SC SCH ×3 (07:44→16:53)
[2017-09-18] MEDS: Insulin Lispro (humaLOG) LOW Coverage SC SCH ×4 (07:44→21:34)
[2017-09-18 08:05] VITALS: RESP 20
--- NOTE | 2017-09-18 09:23 | PN ---
DATE: 09/16/2017 DRYING RACK CHANGER NOTE LOCATION: [facility]. SUBJECTIVE: The patient is resting in bed with O2 via nasal cannula, very comfortable. The patient is getting IV fluids and still on insulin drip. He complains of occasional cough, but no fever or chills, no nausea or vomiting, no diarrhea, no abdominal pain, no chest pain. PHYSICAL EXAMINATION VITAL SIGNS: Note that his temperature is 98.1, his pulse is 87, respirations are 18 and BP is 135/87. SKIN: Warm and dry. HEENT: Head is atraumatic, normocephalic. Eyes reactive to light. Ears, nose and throat seemed to be within normal limits. NECK: Supple. No JVD. No thyroid enlargement. No lymph nodes. HEART: Has regular rate and rhythm. Normal S1, S2. LUNGS: Reveal good breath sounds bilaterally. ABDOMEN: Soft, nontender, decreased bowel sounds. GENITALIA AND RECTAL: Deferred. MUSCULOSKELETAL: No joint deformities. EXTREMITIES: Reveal trace lower extremity edema. NEUROLOGIC: He seemed to be grossly intact. LABORATORY DATA: As far as his laboratories are concerned, his white count is 13.4, hemoglobin is 16.9, hematocrit 50.8 with platelets of 258,000. His venous blood gas reveals a pH of 7.35, pCO2 of 55 and pO2 of 67. As far as his sodium is 133, potassium 4.8, chloride 92, CO2 of 29 with a BUN of 28, creatinine of 1.6 and glucose of 339. IMPRESSION: As far as my impression, this patient presented with hyperglycemia and hyperkalemia, noted to be obese and carries a diagnosis of dho-[id number] diabetes. He presents with acute renal insufficiency, has a history of hypertension as well as hyperlipidemia. PLAN: As far as our plan, we will continue with normal saline and potassium supplement at 200 mL an hour. We will follow his blood sugars closely and at present, the patient is n.p.o. The patient is getting IV insulin and Protonix as well. We will continue to treat aggressively along with the steel pourer helper and follow closely. Hakeem Ro MD
--- NOTE | 2017-09-18 09:33 | CON ---
DATE: 09/16/2017 ENDOCRINOLOGY CONSULTATION LOCATION: ICU 128, room 1. SUBJECTIVE: This is a 32-year-old male with known history of type 2 diabetes, on metformin therapy, presenting here with generalized body weakness with progressive bouts of dizziness and lightheadedness and was evaluated to have marked hyperglycemic accelerations and is now being referred for diabetic evaluation and management. PAST MEDICAL HISTORY: As mentioned above, history of type 2 diabetes, currently on metformin taken as 1 g b.i.d. as ordered; history of hypertensive cardiovascular disease and dyslipidemia. MEDICATIONS: He is currently on Norvasc given as 10 mg daily with valsartan and hydrochlorothiazide at 320-25 mg daily. He is also on simvastatin at 20 mg once daily as noted. FAMILY HISTORY: Positive for hypertension and heart disease. SOCIAL HISTORY: The patient has supportive family. Smokes half a pack a day for many years. REVIEW OF SYSTEMS: As mentioned above. Admits to generalized body weakness with progressive bouts of dizziness and lightheadedness, worse on the day of admission. Also, admits to bifrontal headaches with visual blurring and increasing hypersomnolence and lethargy. No chest pains or palpitations or PND, but admits to episodic bouts of shortness of breath especially on exertion. His oral intake is variable with nausea and dyspepsia with marked polyuria, nocturia, polydipsia as noted. LABORATORY DATA: The initial chemistry showed a BUN of 27, sodium 121, potassium 6.4, chloride 78, CO2 of 29, glucose 822 and creatinine 1.9. His glucose levels have ranged from 410 to over 500 mg/dL and the last glucose today is 357 mg/dL. ASSESSMENT: This is a 32-year-old male with uncontrolled and decompensated type 2 insulin-requiring diabetes, presenting here with hyperosmolar hyperglycemic state and dehydration with spurious hyponatremia and hyperkalemia as noted thereof. PLAN OF MANAGEMENT: As discussed with the staff, we will concur with overnight intensive insulin therapy given with an insulin drip infusion as noted. However, today since the CO2 was remained above 20 and it is actually 29 and clearly not in metabolic acidosis, we will switch him over now to a more physiologic basal and bolus insulin drug combination as ordered. We will start him with Humalog given as 14 units subcu t.i.d. before meals to start at lunchtime today as ordered. We will add Levemir. We will give a stat dose of Levemir at 20 units subcu now and tonight we will give him Levemir at 30 units subcu at bedtime daily as ordered. We will titrate incrementally as indicated to optimize metabolic control. We will obtain a hemoglobin A1c to confirm his prior glycemic control and baseline thyroid studies and serial chemistries will be obtained and we will supplement accordingly as needed. We will follow. Angela Wiggins MD
[2017-09-18] MEDS ORDERED: Insulin Detemir 100 units/ml Vial (Levemir) SC SCH (22:00)
--- NOTE | 2017-09-18 22:47 | PN ---
DATE: ENDOCRINOLOGY FOLLOWUP LOCATION: Patient in room 562. SUBJECTIVE: This is a 32-year-old male with recent uncontrolled type 2 insulin-requiring diabetes, presenting here with diabetic ketoacidosis and dehydration, and his symptom improved clinically and metabolically as noted thereof. He has been placed now and switched over to a more physiologic basal and bolus insulin drug combination as given. His latest glucose values are fluctuating and have ranged from 262 to 272 mg/dL. It was . The latest chemistry shows a BUN of 15, sodium 135, potassium 4.5, chloride 101, CO2 of 25, glucose 263, and creatinine of 0.9. ASSESSMENT AND PLAN: So, at this time, we will modify once again his basal and bolus insulin regimen, and increase the Humulin to 18 units subcu t.i.d. before meals as ordered. We will also titrate his Levemir units subcu at bedtime daily to start tonight. We will obtain serial chemistries and supplement accordingly as needed. We will also initiate diabetic education to include insulin self-administration . Angela Wiggins MD
[2017-09-19] MEDS: Pantoprazole 40 mg EC Tab PO SCH (06:38)
[2017-09-19] MEDS: Insulin Lispro 1 UNITS/0.01 ML SC SCH ×3 (08:01→17:26)
[2017-09-19] MEDS: Insulin Lispro (humaLOG) LOW Coverage SC SCH ×4 (08:01→22:34)
[2017-09-19 08:08] LABS: BLOOD UREA NITROGEN 15 mg/dL (7-21); CALCIUM 9.2 mg/dL (8.4-10.5); GFR AFRICAN-AMERICAN > 60; GFR NON-AFRICAN AMERICAN > 60
--- NOTE | 2017-09-19 08:23 | PN ---
DATE: 08/18/2017 SUBJECTIVE: This 32-year-old male was examined at the bedside and the case was reviewed in detail with his nurse, Talia Reed, registered nurse. The patient remains weak and deconditioned with newly diagnosed uncontrolled hypertension, insulin-dependent diabetes mellitus, and hyperlipidemia. He is awaiting consultations with dietary and diabetic nursing education. PHYSICAL EXAMINATION: VITAL SIGNS: This morning, he was noted to have temperature 98.8, respirations 20, pulse 92, blood pressure 135/100 with pulse ox of 100% on room air. HEENT: Head: Normocephalic, atraumatic. Eyes: No icterus. Ears: Clear. Throat: Noninjected. NECK: Supple. HEART: Regular, S1, S2. LUNGS: Clear. ABDOMEN: Soft. EXTREMITIES: No edema. SKIN: Without rash. NEUROLOGICAL: Intact. PSYCHOLOGICAL: Alert. VASCULAR: Legs warm to touch. LABORATORY DATA: White count 9500, hemoglobin 14.1, hematocrit 44.0, platelets 206,000. Sodium 135, K 4.5, chloride 101, bicarb 25, BUN 15, creatinine 0.9, random blood sugar 262, influenza A and B were negative. IMPRESSION: This is a 32-year-old obese male with insulin-dependent diabetes mellitus, hypertension, hyperlipidemia, in need of medication adjustment. PLAN: The plan at present is to continue physical and occupational therapy for reconditioning and gait training. He will continue on Zestril 5 mg p.o. daily, Protonix 40 mg p.o. daily, nitroglycerin 1 inch to chest wall q.4 hours p.r.n. accelerated hypertension if systolic BP greater than 160 or diastolic blood pressure greater than 100, metoprolol tartrate 25 mg b.i.d., Lipitor 20 mg at dinner time, Levemir 44 units subcu at bedtime, Humalog 18 units a.c. meals and Humalog low-dose insulin protocol a.c. meals and at bedtime. Patient is being followed by Dr. Angela Wiggins from Endocrinology. He is awaiting diabetic education and dietary evaluation and ultimate plan will be for discharge to home when medically stable. Stacie Cruz MD [facility] # [id number] MTDArlene
[2017-09-19 14:03] LABS: C-PEPTIDE 2.14 ng/mL (0.80-3.85)
[2017-09-19] MEDS ORDERED: Insulin Detemir 100 units/ml Vial (Levemir) SC SCH (16:30)
--- NOTE | 2017-09-19 16:36 | PN ---
DATE: ENDOCRINOLOGY FOLLOWUP NOTE LOCATION: Room 573. SUBJECTIVE: This is a 32-year-old male with recent uncontrolled type 2 insulin-requiring diabetes with marked insulin resistance and supervening persistent hyperglycemic accelerations as noted thereof. His glucose levels today have ranged from 297 to 284 and 334 mg/dL. His bedtime glucose was 397 last night as noted. The latest chemistry showed a BUN of 15, sodium 139, potassium 4.5, chloride 101, CO2 of 28, glucose 307 and creatinine 0.9. So at this time, we will modify once again the basal and bolus insulin regimen to override the increased insulin resistance and add the basal insulin both morning and evening with Levemir to be given as 30 units subcu at 10:00 a.m. and increase the basal overnight Levemir to 50 units subcu at bedtime daily to start tonight. We will also increase the Humalog to 24 units subcu t.i.d. before meals as ordered. We will continue the metformin given as 1 g b.i.d. as ordered. We will obtain serial [id number] and supplement accordingly as needed. We will follow. Angela Wiggins MD
--- NOTE | 2017-09-19 21:46 | PN ---
DATE: 09/19/2017 SUBJECTIVE: This 32-year-old male was examined at the bedside and this case was reviewed in detail with himself and his nurse, Liz Moya, registered nurse. This patient remains hospitalized feeling weakened and still complains of occasional blurry vision in the setting of uncontrolled insulin-dependent diabetes mellitus. The patient was admitted with acute renal failure, severe dehydration and a blood sugar in excess of 800 mg/dL. Of note, despite receiving metformin and subcu insulin, he is still running blood sugars in the mid to high 300s. The patient at present denies any fever or chills. There have been no complaints of chest pain or shortness of breath. PHYSICAL EXAMINATION: VITAL SIGNS: Temperature 98.2, respirations 20, pulse 80, blood pressure 131/76 and a pulse ox of 98% on room air. HEENT: Head is normocephalic, atraumatic. Eyes: No icterus. Ears: Clear. Throat: Noninjected. NECK: Supple. HEART: Regular S1, S2. LUNGS: Clear. ABDOMEN: Obese. EXTREMITIES: No edema. SKIN: Without rash. NEUROLOGIC: Unchanged. PSYCHOLOGIC: Alert. VASCULAR: Legs warm to touch. LABORATORY DATA: Sodium 139, K 4.5, chloride 101, bicarb 28, BUN 15, creatinine 0.9, random blood sugar 334, calcium 9.2. Urinalysis unremarkable. Influenza A and B serology negative. Renal ultrasound was reviewed. It showed no evidence of any hydronephrosis, stones or masses. IMPRESSION: A 32-year-old male with obesity, uncontrolled insulin-dependent diabetes mellitus, hypertension and hyperlipidemia with history of noncompliance with outpatient medical followup and medication in his past. PLAN: The plan as discussed with the patient and nursing, will be to have nurse educator associate professor of counseling the patient on the use of a diabetic monitor and insulin. The patient continues to have his insulin adjusted on a daily basis and is being followed by Dr. Angela Wiggins from Endocrinology. At present, she is ordering Levemir 30 units subcu a.m. 50 units subcu at bedtime, Humalog 24 units subcu a.c. each meal with regular low-dose Humalog insulin coverage a.c. meals and at bedtime. He has been started on metformin 1000 mg p.o. b.i.d., Lipitor 20 mg p.o. at dinner time, Lopressor 25 mg p.o. b.i.d. and nitroglycerin 1 inch to chest wall q. 4 hours p.r.n. accelerated hypertension if systolic blood pressure greater than 160 or diastolic blood pressure greater than 100. He will continue on nitroglycerin 1 inch to chest wall q. 4 hours p.r.n. accelerated hypertension if systolic blood pressure greater than 160 or diastolic blood pressure greater than 100, Pepcid is 40 mg p.o. at bedtime p.r.n. GERD and he continues on Zestril 5 mg p.o. daily. He is ordered to have a heart-healthy diabetic diet. I have asked the dietitian to outline a diabetic diet for this patient to follow up on discharge and ultimate plan will be for discharge to home with outpatient medical followup when medically stable. Greater than 35 minutes was spent in the care management, review of x-rays, labs and medication with the patient and nursing. All questions were answered. Stacie Cruz MD [facility]
[2017-09-19] MEDS: Insulin Detemir 100 units/ml Vial (Levemir) SC SCH (22:34)
[2017-09-20] MEDS: Insulin Lispro (humaLOG) LOW Coverage SC SCH ×4 (08:16→23:00)
[2017-09-20] MEDS: Insulin Lispro 1 UNITS/0.01 ML SC SCH ×3 (09:09→16:48)
[2017-09-20 10:41] LABS: BETA-HYDROXYBUTYRIC ACID None Detected
[2017-09-20] MEDS: Insulin Detemir 100 units/ml Vial (Levemir) SC SCH ×2 (10:59→23:00)
--- NOTE | 2017-09-20 15:49 | PN ---
DATE: 09/20/2017 SUBJECTIVE: This 32-year-old male was examined at his bedside and this case was reviewed in detail with his nurse, Spike Rolle, registered nurse. The patient states today he has not tested his blood sugar with the Accu-Chek monitor, nor drawn up any insulin appropriate for his current dosing and coverage. This was discussed with nurse, Aquilino and I have instructed him to let the patient test his blood sugar on the Accu-Chek monitor at lunch, dinner, and breakfast and also to draw up the required insulin dosing and coverage as ordered. The patient at present denies any fever, chills, chest pain, or shortness of breath. PHYSICAL EXAMINATION: VITAL SIGNS: Remains in a normal sinus rhythm with temperature 98.6, respirations 20, pulse 92, and blood pressure 141/93 with a pulse ox of 94% room air. HEENT: Head: Normocephalic, atraumatic. Eyes: No icterus. Ears: Clear. Throat: Noninjected. NECK: Supple. HEART: Regular, S1 and S2. LUNGS: Clear. ABDOMEN: Obese. EXTREMITIES: No edema. SKIN: Without rash. Shows good turgor. NEUROLOGICAL: Intact. PSYCHOLOGICAL: Alert and oriented x3. VASCULAR: Legs warm to touch. LABORATORY DATA: White count 9500, hemoglobin 14.1, hematocrit 44.0, platelets 206,000. Blood sugars are now ranging between 167 and 297 mg/dL. Influenza A and B serologies are negative and MRSA from the nares was not detected and blood cultures show no growth. IMPRESSION: Morbidly obese 32-year-old male with uncontrolled insulin-dependent diabetes mellitus, chronic hypertension, and hyperlipidemia. PLAN: As discussed with the patient and nursing, will be to instruct him on the use of insulin and ensure that he is successful in administering insulin and plan him for discharge to home. He will need cautious outpatient monitoring with his private medical physician and all of this was discussed in detail with the patient and nursing at bedside. Hopefully, with proper instruction, he will be ready for discharge within the next 24 to 48 hours. Stacie Cruz MD [facility] # [id number] MTDArlene
--- NOTE | 2017-09-20 22:37 | PN ---
DATE: ENDOCRINOLOGY FOLLOWUP NOTE LOCATION: Room 573. SUBJECTIVE: This is a 32-year-old male with recent uncontrolled type 2 insulin-requiring diabetes with underlying morbid obesity and concomitant marked insulin resistance with expected hyperglycemic accelerations and increased insulin requirements thereof. His glucose levels are fluctuating, but improved and today's glucose values have ranged from 167-204 and 288 mg/dL. His latest chemistry showed a BUN of 15, sodium 139, potassium 4.5, chloride 101, CO2 of 28, glucose 307 and creatinine 0.9. His bedtime glucose was 194. So at this time, we will continue the same basal and bolus insulin regimen to allow for dose equilibration and keep him on the Humalog given as 24 units subcu t.i.d. before meals as ordered. We will continue the basal insulin given as Levemir at 30 units in the morning and 50 units at bedtime as ordered. We will titrate incrementally as indicated to optimize metabolic control. We will continue also the metformin given as 1 g b.i.d. with meals as ordered. We will obtain serial chemistries and supplement accordingly as needed. We will follow. Angela Wiggins MD
[2017-09-21 07:37] VITALS: TEMP 98.8; O2SAT 95
[2017-09-21] MEDS: Insulin Lispro (humaLOG) LOW Coverage SC SCH ×2 (08:33→11:44)
[2017-09-21] MEDS: Insulin Lispro 1 UNITS/0.01 ML SC SCH ×2 (08:40→11:55)
[2017-09-21 10:02] VITALS: BP 167/91; PULSE 87
[2017-09-21] MEDS: Insulin Detemir 100 units/ml Vial (Levemir) SC SCH (10:07)
--- NOTE | 2017-09-21 20:14 | PN ---
DATE: ENDOCRINOLOGY FOLLOWUP NOTE LOCATION: In Room 573. SUBJECTIVE: This is a 32-year-old male with recent uncontrolled type 2 insulin-requiring diabetes presenting here with diabetic ketoacidosis and dehydration with super morbid obesity and concomitant increased insulin resistance thereof with also higher insulin requirements to override the insulin the underlying of increased insulin resistance as noted thereof. His glucose values today are improving and are ranging from 167 to 204 and 288 mg/dL. His bedtime glucose was 194. The latest chemistry showed a BUN of 15, sodium 139, potassium 4.5, chloride 101, CO2 of 28, glucose 307 and creatinine 0.9. So at this time, we will continue the same basal and bolus insulin regimen to allow for dose equilibration and keep him on the Humalog given as 24 units subcu t.i.d. before meals as ordered. We will also continue the Levemir given as 30 units every morning and 50 units at bedtime as ordered. We will continue also the metformin given as 1 g b.i.d. as ordered. We will obtain serial chemistries and supplement accordingly needed. We will follow this. Angela Wiggins MD
--- NOTE | 2017-09-22 15:33 | DS ---
FINAL DIAGNOSES: Uncontrolled insulin-dependent diabetes mellitus, improved; morbid obesity; accelerated hypertension, improved; hyperlipidemia. DISPOSITION: Home. FOLLOWUP: With his PMD in 48 hours. DISCHARGE DIET: Given to patient was heart-healthy 2400 calories ADA. DISCHARGE MEDICATIONS: Metformin 1000 mg p.o. b.i.d., Norvasc 10 mg p.o. daily, Zocor 20 mg p.o. daily, Lopressor 50 mg p.o. b.i.d., Levemir 50 units subcu at bedtime, Levemir 30 units subcu a.m., Humalog insulin 24 units a.c. meals and Humalog low-dose insulin coverage a.c. meals and at bedtime, enalapril 5 mg p.o. daily, and Lipitor 20 mg p.o. at dinner time. Patient was given a 1-month supply, no refills. Patient was instructed by nursing staff and did perform Accu-Chek monitoring of blood sugar, proper drawing-up of insulin in a diabetic syringe and administration of insulin as outlined above including sliding scale protocol. SUMMARY: This 32-year-old male who was admitted to intensive care with a blood sugar on admission in excess of 800 mg/dL as well as accelerated hypertension and acute renal failure secondary to marked dehydration secondary to hyperglycemia. His hospital course was notable for gradual improvement in vital signs and labs with the adjustment of medication as listed above. At the time of discharge, all of the above including medication and diabetic insulin instructions were reviewed with the patient and his brother, Tereso at his bedside. All of these instructions were also reviewed with nurse, Marcos Fernandez, registered nurse. At discharge, patient was ambulating independently, alert and oriented, and aware of his discharge instructions and need for compliance. Vital signs were temperature 98.8, respirations 20, pulse 83 and blood pressure 140/89 with a pulse ox of 95% on room air. Labs: White count 9500, hemoglobin 14.1, hematocrit 44.0, and platelets 206,000. His blood sugar before breakfast this morning was 171 and before lunch 211. Sodium 139, K 4.5, chloride 101, bicarb 28. BUN 15, creatinine 0.9. Calcium 9.2. Urinalysis showed no protein. Influenza A, B serologies were negative. Renal ultrasound was unremarkable. Head CT shows no acute intracranial abnormalities. EKG showed normal sinus rhythm and chest x-ray showed no active pulmonary disease. The patient was advised to follow up with his PMD, Dr. Hardy within the next 48 hours, to be compliant with diet, start walking regime and weight loss regime, and hopefully will be compliant with the above recommendation. All of the above was discussed in detail with patient and family and Nursing at bedside. All questions were answered. Greater than 35 minutes was spent in the care in discharge management of this patient today. Stacie Cruz MD
== END 2017-09-21 17:33 | disposition home or self-care (01) | DRG 638 ==
LOC: ED 20:04 → ERH 23:18 → ICU 09-16 00:38 → 5RNO 09-17 13:36 → 5RSO 09-18 17:24
PROVIDERS: ADMIT Internal Medicine; ATTEND Internal Medicine
DX: E11.10 Type 2 diabetes mellitus with ketoacidosis without coma (principal); N17.9 Acute kidney failure, unspecified; E87.1 Hypo-osmolality and hyponatremia; Z68.41 Body mass index [BMI] 40.0-44.9, adult; E86.0 Dehydration; E83.51 Hypocalcemia; E87.5 Hyperkalemia; I10 Essential (primary) hypertension; G47.30 Sleep apnea, unspecified; E78.5 Hyperlipidemia, unspecified; E66.01 Morbid (severe) obesity due to excess calories; Z91.11 Patient's noncompliance with dietary regimen; Z91.19 Patient's noncompliance with other medical treatment and regimen; Z79.84 Long term (current) use of oral hypoglycemic drugs